=== PATIENT | female | born 1950 | race African-American/Black ===

== ENCOUNTER 2018-01-20 23:19 | Inpatient (IN) | payer MEDICARE, MEDICAID ==
[~2018-01-20] VITALS: Ht 256.5 cm; Wt 55.8 kg
[2018-01-21] MEDS ORDERED: MECLIZINE 25MG TABLET PO ONE (00:45)
[2018-01-21] MEDS ORDERED: ASPIRIN 81MG TABLET PO ONE (00:45)
[2018-01-21 01:13] LABS: BASOPHILS % 0.8 % (0.0-2.0); EOSINOPHILS % 0.6 % (0.0-5.0); HEMATOCRIT. 42.3 % (36.0-48.0); HEMOGLOBIN. 13.9 g/dL (12.0-16.0); LYMPHOCYTES % 23.9 % (20.0-50.0); MEAN CORPUSCULAR VOLUME 91.1 fL (81.0-99.0); MONOCYTES % 3.4 % (2.0-8.0); NEUTROPHILS % 71.3 % (40.0-76.0); PLATELET 254 x1000/uL (130-400); RED BLOOD CELL COUNT 4.64 mill/uL (4.2-5.4); RED CELL DISTRIBUTION WIDTH 13.6 % (11.6-14.6)
[2018-01-21 01:14] LABS: CHLORIDE 107 mEq/L (98-107)
[2018-01-21 01:26] LABS: PARTIAL THROMBOPLASTIN TIME 29.4 sec (23.4-31.0); PROTHROMBIN TIME 10.1 sec (9.1-11.1)
[2018-01-21] MEDS ORDERED: POTASSIUM CHLORIDE 20MEQ TABLET SR PO NR (02:00)
[2018-01-21 02:51] LABS: *AMPHETAMINES SCREEN URINE NEGATIVE (NEGATIVE); *BARBITURATES SCREEN URINE NEGATIVE (NEGATIVE); *BENZODIAZEPINES SCREEN URINE NEGATIVE (NEGATIVE); *COCAINE SCREEN URINE PRESUMTIVE POSITIVE (NEGATIVE)
[2018-01-21 02:52] LABS: CANNABINOID URINE SCREEN NEGATIVE (NEGATIVE); METHADONE URINE SCREEN NEGATIVE (NEGATIVE); OPIATES URINE SCREEN NEGATIVE (NEGATIVE); PHENCYCLIDINE URINE SCREEN NEGATIVE (NEGATIVE)
[2018-01-21] MEDS ORDERED: DOCUSATE SODIUM 100MG CAPSULE PO PRN (03:15)
[2018-01-21] MEDS ORDERED: CLONIDINE 0.1MG TABLET PO PRN (03:15)
[2018-01-21] MEDS ORDERED: ONDANSETRON HCL 4MG/2ML INJ IV PRN (03:15)
[2018-01-21] MEDS ORDERED: MAGNESIUM/ALUMINUM HYDROXIDE/SIMETHICONE 30ML UDC PO PRN (03:15)
[2018-01-21] MEDS ORDERED: HYDROMORPHONE HCL/PF 2MG/ML CPJ IV PRN (03:15)
[2018-01-21] MEDS ORDERED: HYDROCODONE/ACETAMINOPHEN 5/325MG TABLET PO PRN (03:15)
[2018-01-21] MEDS ORDERED: GUAIFENESIN 200MG/10ML SUGAR FREE UDC PO PRN (03:15)
[2018-01-21] MEDS ORDERED: ACETAMINOPHEN 325MG TABLET PO PRN (03:15)
[2018-01-21 04:45] VITALS: BP 165/94
[2018-01-21] MEDS: SODIUM CHLORIDE 0.45% 1,000 ML IV SCH ×2 (05:09→20:23)
[2018-01-21 05:47] VITALS: BP 165/94
[2018-01-21 08:00] VITALS: BP 139/74
[2018-01-21] MEDS: ASPIRIN 81MG EC TABLET PO SCH (09:59)
[2018-01-21] MEDS: AMLODIPINE 10MG TABLET PO SCH (09:59)
[2018-01-21 10:21] LABS: CREATINE KINASE 156 IU/L (26-192)
[2018-01-21 10:22] LABS: CREATINE KINASE MB FRACTION 1.6 ng/mL (0.5-3.6)
[2018-01-21 12:00] VITALS: BP 122/75
[2018-01-21 12:40] LABS: CHLORIDE 108 mEq/L (98-107)
[2018-01-21 16:00] VITALS: BP 158/99
[2018-01-21 19:16] LABS: CREATINE KINASE 141 IU/L (26-192)
[2018-01-21 19:17] LABS: CREATINE KINASE MB FRACTION 1.2 ng/mL (0.5-3.6)
[2018-01-21 20:00] VITALS: BP 100/63
[2018-01-21] MEDS: MECLIZINE 25MG TABLET PO PRN (20:24)
[2018-01-22 00:08] VITALS: BP 117/75
[2018-01-22 04:00] VITALS: BP 150/63
[2018-01-22 06:59] LABS: BASOPHILS % 1.3 % (0.0-2.0); EOSINOPHILS % 3.7 % (0.0-5.0); HEMOGLOBIN. 13.8 g/dL (12.0-16.0); LYMPHOCYTES % 58.2 % (20.0-50.0); MEAN CORPUSCULAR HEMOGLOBIN 30.6 pg (28.0-32.0); MEAN CORPUSCULAR VOLUME 90.9 fL (81.0-99.0); MONOCYTES % 6.2 % (2.0-8.0); NEUTROPHILS % 30.6 % (40.0-76.0); PLATELET 234 x1000/uL (130-400); RED BLOOD CELL COUNT 4.51 mill/uL (4.2-5.4); RED CELL DISTRIBUTION WIDTH 13.6 % (11.6-14.6)
[2018-01-22 08:00] VITALS: BP 125/60
[2018-01-22] MEDS: AMLODIPINE 10MG TABLET PO SCH (09:17)
[2018-01-22] MEDS: ASPIRIN 81MG EC TABLET PO SCH (09:17)
[2018-01-22 10:14] LABS: CHLORIDE 106 mEq/L (98-107)
[2018-01-22 12:00] VITALS: BP 138/75
[2018-01-22] MEDS: MECLIZINE 25MG TABLET PO PRN (15:50)
[2018-01-22] MEDS: SODIUM CHLORIDE 0.45% 1,000 ML IV SCH (15:51)
[2018-01-22 16:00] VITALS: BP 125/75
[2018-01-22 20:00] VITALS: BP 126/63
[2018-01-23] VITALS: BP 116/66
[2018-01-23 04:00] VITALS: BP 146/84
[2018-01-23 06:16] LABS: BASOPHILS % 0.8 % (0.0-2.0); EOSINOPHILS % 6.2 % (0.0-5.0); HEMATOCRIT. 41.7 % (36.0-48.0); HEMOGLOBIN. 13.7 g/dL (12.0-16.0); LYMPHOCYTES % 50.8 % (20.0-50.0); MEAN CORPUSCULAR HEMOGLOBIN 30.6 pg (28.0-32.0); MEAN PLATELET VOLUME 8.4 fl (7.4-10.4); NEUTROPHILS % 35.2 % (40.0-76.0); PLATELET 230 x1000/uL (130-400); RED BLOOD CELL COUNT 4.48 mill/uL (4.2-5.4); RED CELL DISTRIBUTION WIDTH 13.3 % (11.6-14.6)
[2018-01-23] MEDS: SODIUM CHLORIDE 0.45% 1,000 ML IV SCH (06:33)
[2018-01-23 08:04] VITALS: BP 142/78
[2018-01-23] MEDS: ASPIRIN 81MG EC TABLET PO SCH (08:58)
[2018-01-23] MEDS ORDERED: AMLODIPINE 2.5MG TABLET PO SCH (09:00)
[2018-01-23 10:12] LABS: CHLORIDE 105 mEq/L (98-107)
[2018-01-23 11:57] VITALS: BP 138/74
== END 2018-01-23 13:04 | disposition home health service (06) | DRG 206 ==
LOC: ER 23:19 → EDBEDREQTM 01-21 01:53 → EDBEDREQ 01-21 01:53 → ENRESERV 01-21 02:54 → 5WST 01-21 04:24 → 6WST 01-21 16:57
PROVIDERS: ADMIT Hospitalist; ATTEND Hospitalist
DX: M94.0 Chondrocostal junction syndrome [Tietze] (principal); I24.9 Acute ischemic heart disease, unspecified; R42 Dizziness and giddiness; E87.6 Hypokalemia; F17.200 Nicotine dependence, unspecified, uncomplicated; R00.1 Bradycardia, unspecified; R07.9 Chest pain, unspecified; I10 Essential (primary) hypertension; W18.30XA Fall on same level, unspecified, initial encounter; Y93.89 Activity, other specified; Y92.89 Other specified places as the place of occurrence of the external cause; Y99.8 Other external cause status; Z82.49 Family history of ischemic heart disease and other diseases of the circulatory system
CPT/HCPCS: 36415; 71045; 80048; 80305; 82550; 82553; 83735; 83880; 84484; 93005; 93306; 93970; 96372; 97161; 99285; J8597

== ENCOUNTER 2019-04-04 00:21 | Inpatient (IN) | payer MEDICARE, MEDICAID ==
[~2019-04-04] VITALS: Ht 160 cm; Wt 47.6 kg
[2019-04-04] MEDS ORDERED: SODIUM CHLORIDE 0.9% 1,000 ML IV ONE (01:55)
[2019-04-04] MEDS ORDERED: ONDANSETRON HCL 4MG/2ML INJ IV STA (01:55)
[2019-04-04] MEDS ORDERED: IPRATROPIUM BROMIDE (0.02%) 0.5MG/2.5ML NEB HHN STA (01:55)
[2019-04-04] MEDS ORDERED: ALBUTEROL (0.083%) 2.5MG/3ML NEB HHN STA (01:55)
[2019-04-04 02:37] LABS: BASOPHILS % 0.8 % (0.0-2.0); EOSINOPHILS % 0.6 % (0.0-5.0); HEMOGLOBIN. 14.9 g/dL (12.0-16.0); LYMPHOCYTES % 18.6 % (20.0-50.0); MEAN CORPUSCULAR HEMOGLOBIN 30.8 pg (28.0-32.0); MEAN CORPUSCULAR VOLUME 91.1 fL (81.0-99.0); MEAN PLATELET VOLUME 8.3 fl (7.4-10.4); MONOCYTES % 6.3 % (2.0-8.0); NEUTROPHILS % 73.7 % (40.0-76.0); PLATELET 219 x1000/uL (130-400); RED BLOOD CELL COUNT 4.83 mill/uL (4.2-5.4)
[2019-04-04 02:43] LABS: CHLORIDE 105 mEq/L (98-107)
[2019-04-04 02:47] LABS: ETHANOL BLOOD < 10 mg/dL
[2019-04-04 04:19] LABS: CLARITY URINE CLEAR (CLEAR); COLOR URINE YELLOW (YELLOW); KETONES URINE NEGATIVE (NEGATIVE); LEUKOCYTE ESTERASE URINE 1+ (NEGATIVE); NITRITE URINE NEGATIVE (NEGATIVE); OCCULT BLOOD URINE 1+ (NEGATIVE); PROTEIN URINE NEGATIVE (NEGATIVE); SPECIFIC GRAVITY URINE 1.012 (1.005-1.030)
[2019-04-04 05:18] LABS: *AMPHETAMINES SCREEN URINE NEGATIVE (NEGATIVE); *BARBITURATES SCREEN URINE NEGATIVE (NEGATIVE); *BENZODIAZEPINES SCREEN URINE NEGATIVE (NEGATIVE); *COCAINE SCREEN URINE PRESUMTIVE POSITIVE (NEGATIVE); METHADONE URINE SCREEN NEGATIVE (NEGATIVE); OPIATES URINE SCREEN NEGATIVE (NEGATIVE); PHENCYCLIDINE URINE SCREEN NEGATIVE (NEGATIVE)
[2019-04-04 05:20] LABS: CANNABINOID URINE SCREEN PRESUMTIVE POSITIVE (NEGATIVE)
[2019-04-04] MEDS ORDERED: KETOROLAC 15MG/ML VIAL IV PRN (09:00)
[2019-04-04] MEDS ORDERED: LORAZEPAM 0.5MG TABLET PO PRN (09:00)
[2019-04-04] MEDS ORDERED: TRAMADOL 50MG TABLET PO PRN (09:00)
[2019-04-04] MEDS ORDERED: NITROGLYCERIN 0.4MG TABLET SL SL PRN (09:00)
[2019-04-04] MEDS ORDERED: MAGNESIUM/ALUMINUM HYDROXIDE/SIMETHICONE 30ML UDC PO PRN (09:00)
[2019-04-04] MEDS ORDERED: GUAIFENESIN 200MG/10ML SUGAR FREE UDC PO PRN (09:00)
[2019-04-04] MEDS ORDERED: ONDANSETRON HCL 4MG/2ML INJ IV PRN (09:00)
[2019-04-04] MEDS ORDERED: PANTOPRAZOLE SODIUM 40 MG/VIAL IV SCH (09:00)
[2019-04-04] MEDS ORDERED: ZOLPIDEM TARTRATE 5MG TABLET PO PRN (09:00)
[2019-04-04] MEDS ORDERED: CLONIDINE 0.1MG TABLET PO PRN (09:00)
[2019-04-04] MEDS ORDERED: IPRATROPIUM/ALBUTEROL 0.5-3(2.5)MG/3ML NEB HHN PRN (09:00)
[2019-04-04] MEDS ORDERED: DOCUSATE SODIUM 100MG CAPSULE PO PRN (09:00)
[2019-04-04] MEDS ORDERED: ACETAMINOPHEN 325MG TABLET PO PRN (09:00)
[2019-04-04] MEDS ORDERED: POTASSIUM CHLORIDE 20MEQ TABLET SR PO NR (10:00)
[2019-04-04] MEDS: ASPIRIN 81MG EC TABLET PO SCH (10:58)
[2019-04-04] MEDS: ENOXAPARIN 40MG/0.4ML SYR SUBCUT SCH (10:58)
[2019-04-04 17:01] LABS: CREATINE KINASE 80 IU/L (26-192)
[2019-04-04 17:03] LABS: CREATINE KINASE MB FRACTION < 1.0 ng/mL (0.5-3.6)
[2019-04-04] MEDS: SUCRALFATE 1 G/10 ML UDC PO SCH (21:48)
[2019-04-04 21:50] VITALS: BP 139/66
[2019-04-05] VITALS: BP 147/86
[2019-04-05 00:25] LABS: CREATINE KINASE 69 IU/L (26-192)
[2019-04-05 00:26] LABS: CREATINE KINASE MB FRACTION < 1.0 ng/mL (0.5-3.6)
[2019-04-05] MEDS: DILTIAZEM HCL 60MG TABLET PO SCH ×4 (00:52→18:07)
[2019-04-05 04:00] VITALS: BP 156/83
[2019-04-05 06:39] LABS: BASOPHILS % 1.4 % (0.0-2.0); EOSINOPHILS % 2.8 % (0.0-5.0); HEMATOCRIT. 41.4 % (36.0-48.0); HEMOGLOBIN. 13.8 g/dL (12.0-16.0); LYMPHOCYTES % 52.7 % (20.0-50.0); MEAN PLATELET VOLUME 8.4 fl (7.4-10.4); MONOCYTES % 8.7 % (2.0-8.0); NEUTROPHILS % 34.4 % (40.0-76.0); PLATELET 192 x1000/uL (130-400); RED CELL DISTRIBUTION WIDTH 13.9 % (11.6-14.6)
[2019-04-05 06:47] LABS: CHLORIDE 110 mEq/L (98-107)
[2019-04-05 06:52] LABS: PHOSPHORUS 3.2 mg/dL (2.5-4.9)
[2019-04-05 08:00] VITALS: BP 138/76
[2019-04-05] MEDS: ASPIRIN 81MG EC TABLET PO SCH (09:14)
[2019-04-05] MEDS: SUCRALFATE 1 G/10 ML UDC PO SCH ×4 (09:14→21:12)
[2019-04-05] MEDS: ENOXAPARIN 40MG/0.4ML SYR SUBCUT SCH (09:14)
[2019-04-05 12:00] VITALS: BP 144/72
[2019-04-05 16:00] VITALS: BP 130/62
[2019-04-05 20:00] VITALS: BP 123/66
[2019-04-06] VITALS: BP 143/54
[2019-04-06] MEDS: DILTIAZEM HCL 60MG TABLET PO SCH ×3 (00:10→12:13)
[2019-04-06 04:00] VITALS: BP 122/71
[2019-04-06] MEDS: SUCRALFATE 1 G/10 ML UDC PO SCH ×2 (07:57→12:14)
[2019-04-06 08:00] VITALS: BP 168/91
[2019-04-06] MEDS ORDERED: ENOXAPARIN 30MG/0.3ML SYR SUBCUT SCH (09:00)
[2019-04-06] MEDS ORDERED: FAMOTIDINE 20MG/2ML VIAL IV SCH (09:00)
[2019-04-06] MEDS: ASPIRIN 81MG EC TABLET PO SCH (09:06)
[2019-04-06 12:00] VITALS: BP 123/84
== END 2019-04-06 16:42 | disposition left against medical advice (07) | DRG 918 ==
LOC: ER 00:21 → EDBEDREQTM 05:45 → EDBEDREQ 05:45 → SUPCPDRO 08:59 → ENRESERV 19:38 → 7WST 20:52
PROVIDERS: ADMIT Internal Medicine; ATTEND Internal Medicine
DX: T40.5X1A Poisoning by cocaine, accidental (unintentional), initial encounter (principal); J45.901 Unspecified asthma with (acute) exacerbation; E87.6 Hypokalemia; I10 Essential (primary) hypertension; F14.10 Cocaine abuse, uncomplicated; Z53.29 Procedure and treatment not carried out because of patient's decision for other reasons; J45.909 Unspecified asthma, uncomplicated; F12.10 Cannabis abuse, uncomplicated; Z71.51 Drug abuse counseling and surveillance of drug abuser
CPT/HCPCS: 36415; 71045; 74176; 80053; 80061; 80305; 80320; 81003; 82550; 82553; 83036; 83605; 83735; 84100; 84484; 85025; 93306; 93970; 94640; 97162; 99285; C9113; J1650; J2405; J3490; J7030; G0480